=== PATIENT | female | born 1960 | race Caucasian/White ===

== ENCOUNTER 2017-07-13 11:47 | Emergency (ER) | payer OTHER ==
[2017-07-13] MEDS ORDERED: ACETAMINOPHEN 325 MG TABLET PO ONE (12:49)
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
[2017-07-13 14:51] VITALS: BP 151/81
== END 2017-07-13 14:48 | disposition home or self-care (01) ==
LOC: ER 11:47
DX: S43.402A Unspecified sprain of left shoulder joint, initial encounter (principal); S29.012A Strain of muscle and tendon of back wall of thorax, initial encounter; M25.512 Pain in left shoulder; M54.89 Other dorsalgia; R07.9 Chest pain, unspecified; V49.50XA Passenger injured in collision with unspecified motor vehicles in traffic accident, initial encounter
CPT/HCPCS: 71046; 99284

== ENCOUNTER 2018-05-28 09:28 | Emergency (ER) | payer OTHER ==
[2018-05-28] MEDS ORDERED: LIDOCAINE 1% INJ-PF (10 MG/ML) 30 ML SDV INJ ONE (09:42)
[2018-05-28] MEDS ORDERED: ACETAMINOPHEN 325 MG TABLET PO PRN (09:43)
[2018-05-28] MEDS ORDERED: DIPH/PERTUSS(ACELL)/TETANUS VAC/PF 0.5 ML SYR (>=10YO) IM ONE (09:43)
--- NOTE | 2018-05-28 09:44 | ER Document Report ---
ED Medical Screen (RME) - General Chief Complaint: Laceration Stated Complaint: FINGER INJURY Time Seen by Provider: 05/28/18 09:41 Notes: Patient was using a food cutter. Sliced her second digit on the left hand. Unknown last tetanus. No other major issues at this time. I have greeted and performed a rapid initial assessment of this patient. A comprehensive ED assessment and evaluation of the patient, analysis of test results and completion of the medical decision making process will be conducted by additional ED providers. TRAVEL OUTSIDE OF THE [place] IN LAST 30 DAYS: No - Related Data Allergies/Adverse Reactions: No Known Allergies Allergy (Verified 05/28/18 09:29) Past Medical History - Social History Frequency of alcohol use: None Drug Abuse: None Renal/ Medical History: Denies: Hx Peritoneal Dialysis Past Surgical History: Reports: Hx Section, Hx Tonsillectomy Physical Exam - Vital signs Vitals: Temp Pulse Resp BP Pulse Ox 98.3 F 69 16 147/81 H 100 05/28/18 09:33 05/28/18 09:33 05/28/18 09:33 05/28/18 09:33 05/28/18 09:33 Course - Vital Signs Vital signs: Temp Pulse Resp BP Pulse Ox 97.8 F 57 L 20 125/65 97 05/28/18 11:33 05/28/18 11:33 05/28/18 11:33 05/28/18 11:33 05/28/18 11:33 Doctor's Discharge - Discharge Clinical Impression: Finger laceration Condition: Stable Disposition: HOME, SELF-CARE Instructions: Laceration Care ([facility]), Tetanus Immunization Given ([facility]) Additional Instructions: Return immediately for any new or worsening symptoms Followup with your primary care provider, call tomorrow to make a followup appointment Suture removal in 10 days Referrals: ROSEMARY WELCH DO [ACTIVE STAFF] - Follow up as needed
--- NOTE | 2018-05-28 11:13 | ER Document Report ---
HPI - HPI Patient complains to provider of: Finger laceration Time Seen by Provider: 05/28/18 09:41 Onset: Just prior to arrival Onset/Duration: Sudden Quality of pain: Achy Pain Level: 3 Context: Patient was using a mandolin slicer and accidentally cut the tip of her left finger. Patient with laceration to the left tip of finger that does not involve the fingernail Associated Symptoms: Other - Finger laceration Exacerbated by: Movement Relieved by: Denies Similar symptoms previously: No Recently seen / treated by doctor: No - ROS ROS below otherwise negative: Yes Systems Reviewed and Negative: Yes All other systems reviewed and negative - NEURO Neurology: DENIES: Weakness - GASTROINTESTINAL Gastrointestinal: DENIES: Nausea - DERM Skin Color: Normal Skin Problems: Laceration Past Medical History - General Information source: Patient - Social History Smoking Status: Never Smoker Frequency of alcohol use: None Drug Abuse: None Occupation: None Family History: Reviewed & Not Pertinent Patient has suicidal ideation: No Patient has homicidal ideation: No - Medical History Medical History: Negative Renal/ Medical History: Denies: Hx Peritoneal Dialysis Past Surgical History: Reports: Hx Section, Hx Tonsillectomy Vertical Provider Document - CONSTITUTIONAL Agree With Documented VS: Yes Exam Limitations: No Limitations General Appearance: WD/WN, No Apparent Distress - INFECTION CONTROL TRAVEL OUTSIDE OF THE [place] IN LAST 30 DAYS: No - HEENT HEENT: Atraumatic, Normocephalic - NECK Neck: Normal Inspection - RESPIRATORY Respiratory: No Respiratory Distress - CARDIOVASCULAR Pulses: Normal: Radial - MUSCULOSKELETAL/EXTREMETIES Musculoskeletal/Extremeties: MAEW, FROM - NEURO Level of Consciousness: Awake, Alert, Appropriate Motor/Sensory: No Motor Deficit - DERM Integumentary: Warm, Dry, Laceration - 2 cm laceration to distal tip of left second finger Course - Vital Signs Vital signs: Temp Pulse Resp BP Pulse Ox 98.3 F 69 16 147/81 H 100 05/28/18 09:33 05/28/18 09:33 05/28/18 09:33 05/28/18 09:33 05/28/18 09:33 Procedures - Laceration/Wound Repair Left Finger 2nd digit Wound length (cm): 2 Wound's Depth, Shape: Flap Laceration pre-procedure: Shur-Clens applied Anesthetic type: 1% Lidocaine Wound explored: Clean Wound Repaired With: Sutures Suture Size/Type: 5:0, Ethilon Number of Sutures: 5 Layer Closure?: No Post-procedure wound care: Sterile dressing applied Post-procedure NV exam normal: Yes Complications: No Discharge - Discharge Clinical Impression: Finger laceration Qualifiers: Encounter type: initial encounter Finger: index finger Damage to nail status: without damage Foreign body presence: without foreign body Laterality: left Qualified Code(s): S61.211A - Laceration without foreign body of left index finger without damage to nail, initial encounter Condition: Stable Disposition: HOME, SELF-CARE Instructions: Laceration Care ([facility]), Tetanus Immunization Given ([facility]) Additional Instructions: Return immediately for any new or worsening symptoms Followup with your primary care provider, call tomorrow to make a followup appointment Suture removal in 10 days Referrals: ROSEMARY WELCH, [ACTIVE STAFF] - Follow up as needed
[2018-05-28 11:36] VITALS: BP 125/65
== END 2018-05-28 11:36 | disposition home or self-care (01) ==
LOC: ER 09:28
PROC: 0HQGXZZ Repair Left Hand Skin, External Approach (ICD-10-PCS; principal; 2018-05-28)
DX: S61.211A Laceration without foreign body of left index finger without damage to nail, initial encounter (principal); W26.8XXA Contact with other sharp object(s), not elsewhere classified, initial encounter
CPT/HCPCS: 99283; 90471; 90715; 12001; J3490

== ENCOUNTER → 2018-09-10 | Outpatient (CLI) | payer OTHER | LOC: LAB 12:47 | PROVIDERS: ATTEND Specialist | DX: N95.0 Postmenopausal bleeding (principal) | CPT/HCPCS: 36415; 83001; 84443 ==

== ENCOUNTER 2018-11-24 11:46 | Emergency (ER) | payer OTHER ==
--- NOTE | 2018-11-24 14:47 | ER Document Report ---
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 Patient states she has had an achy feeling in her left armpit for the last month. States her shoulder does not necessarily hurts more in her armpit. States yesterday she was in the shower when she felt a lump in her left breast. This concerned her which is why she presents to the emergency room. Patient states she does not have insurance. Patient's denying any pain or injury to the left breast or armpit. Denies any history of MRSA or abscess formations. Past Medical History - General Information source: Patient - Social History Smoking Status: Unknown if Ever Smoked Family History: Reviewed & Not Pertinent Renal/ Medical History: Denies: Hx Peritoneal Dialysis Past Surgical History: Reports: Hx Section, Hx Tonsillectomy Vertical Provider Document - CONSTITUTIONAL Agree With Documented VS: Yes Notes: GENERAL: Alert, interacts well. No acute distress. HEAD: Normocephalic, atraumatic. EYES: Pupils equal, round, and reactive to light. Extraocular movements intact. ENT: Oral mucosa moist, tongue midline. NECK: Full range of motion. Supple. Trachea midline. LUNGS: Clear to auscultation bilaterally, no wheezes, rales, or rhonchi. No respiratory distress. HEART: Regular rate and rhythm. No murmur Chest: [employer] Robin PCT, approximately 2 cm x 2 cm lesion noted 1:00 the left breast, no inversion of bilateral nipples, no discharge bilateral nipples. No overlying erythema, fluctuance noted. ABDOMEN: Soft, non-tender. Non-distended. Bowel sounds present in all 4 quadrants. EXTREMITIES: Moves all 4 extremities spontaneously. No edema, normal radial and dorsalis pedis pulses bilaterally. No cyanosis. BACK: no cervical, thoracic, lumbar midline tenderness. No saddle anesthesia, normal distal neurovascular exam. NEUROLOGICAL: Alert and oriented x3. Normal speech. cranial nerves II through XII grossly intact PSYCH: Normal affect, normal mood. SKIN: Warm, dry, normal turgor. No rashes or lesions noted. - INFECTION CONTROL TRAVEL OUTSIDE OF THE [place] IN LAST 30 DAYS: No Course - Re-evaluation Re-evalutation: 11/24/18 14:45 Discussed with patient that she inevitably needs a mammogram. Discussed following up at the [facility], [facility], [facility]. Phone numbers for all will be provided. Close return precautions discussed. At this time will discharge with return precautions and follow-up recommendations. Verbal discharge instructions given a the bedside and opportunity for questions given. Medication warnings reviewed. Patient is in agreement with this plan and has verbalized understanding of return precautions and the need for primary care follow-up in the next 24-72 hours. This medical record was dictated with voice recognizing software. There may be grammatical, syntax errors that are unintended. - Vital Signs Vital signs: Temp Pulse Resp BP Pulse Ox 97.8 F 60 18 161/83 H 99 11/24/18 12:13 11/24/18 12:13 11/24/18 12:13 11/24/18 12:13 11/24/18 12:13 Discharge - Discharge Clinical Impression: Lump of breast, left Condition: Stable Disposition: HOME, SELF-CARE Instructions: Breast Lumps ([facility]), Breast Self-Examination ([facility]) Additional Instructions: As we discussed to you have been seen and treated in the emergency department for a lump to your left breast. Is my recommendation that you follow-up for mammogram. Phone numbers for the health department, [facility], [facility] will be provided in this packet. Please also return to the emergency room for any other concerns. Referrals: DANDY RUTLEDGE MD [Primary Care Provider] - Follow up as needed [facility] [NO LOCAL MD] - Follow up as needed [facility] [Provider Group] - Follow up as needed [facility] [Provider Group] - Follow up as needed
[2018-11-24 15:29] VITALS: BP 184/84
== END 2018-11-24 15:29 | disposition home or self-care (01) ==
LOC: ER 11:46
DX: N63.20 Unspecified lump in the left breast, unspecified quadrant (principal)
CPT/HCPCS: 99283

== ENCOUNTER 2018-12-22 05:34 | Day surgery (SDC) | payer OTHER ==
[2018-12-15 12:27] LABS: HEMATOCRIT 41.4 % (36.0-47.0); HEMOGLOBIN 14.1 g/dL (12.0-15.5); MEAN CORPUSCULAR HEMOGLOBIN 30.5 pg (27.0-33.4); MEAN CORPUSCULAR VOLUME 90 fl (80-97); PLATELET COUNT 207 10^3/uL (150-450); RED BLOOD COUNT 4.62 10^6/uL (3.72-5.28); RED CELL DISTRIBUTION WIDTH 13.3 % (11.5-14.0); WHITE BLOOD COUNT 5.9 10^3/uL (4.0-10.5)
[2018-12-15 12:35] LABS: APPEARANCE,URINE SLIGHTLY-CLOUDY; BILIRUBIN,URINE NEGATIVE (NEGATIVE); COLOR,URINE YELLOW; GLUCOSE, URINE NEGATIVE (NEGATIVE); KETONES,URINE NEGATIVE (NEGATIVE); LEUKOCYTE ESTERASE,URINE NEGATIVE (NEGATIVE); NITRITE,URINE NEGATIVE (NEGATIVE); PROTEIN,URINE NEGATIVE (NEGATIVE); URINE SPECIFIC GRAVITY 1.019; UROBILINOGEN,URINE NEGATIVE mg/dL (<2.0)
--- NOTE | 2018-12-15 12:35 | RADIOLOGY REPORT (SQ) ---
EXAM DESCRIPTION: CHEST PA/LATERAL COMPLETED DATE/TIME: 12/15/2018 11:56 am REASON FOR STUDY: PREOP COMPARISON: Two-view chest 07/13/2017 EXAM PARAMETERS: NUMBER OF VIEWS: two views TECHNIQUE: Digital Frontal and Lateral radiographic views of the chest acquired. RADIATION DOSE: NA LIMITATIONS: none FINDINGS: LUNGS AND PLEURA: No opacities, masses or pneumothorax. No pleural effusion. MEDIASTINUM AND HILAR STRUCTURES: No masses or contour abnormalities. HEART AND VASCULAR STRUCTURES: Heart normal size. No evidence for failure. BONES: No acute findings. HARDWARE: None in the chest. OTHER: No other significant finding. IMPRESSION: NO SIGNIFICANT RADIOGRAPHIC FINDING IN THE CHEST. TECHNICAL DOCUMENTATION: JOB ID: [id number] [employer]- All Rights Reserved Reading location - IP/workstation name: [email or web address]
[2018-12-15 13:05] LABS: ANION GAP 10 (5-19); BLOOD UREA NITROGEN 16 mg/dL (7-20); CALCIUM 9.9 mg/dL (8.4-10.2); CARBON DIOXIDE 28 mmol/L (22-30); CHLORIDE 104 mmol/L (98-107); GLUCOSE 123 mg/dL (75-110); POTASSIUM 4.9 mmol/L (3.6-5.0)
--- NOTE | 2018-12-15 13:20 | EKG REPORT ---
SEVERITY:- ABNORMAL ECG - SINUS BRADYCARDIA OLD ANTEROSEPTAL OR : Confirmed by: Dharmesh Crystal MD 15-Dec-2018 13:19:51
[~2018-12-22 05:34] MED LIST: CEFAZOLIN 1 GM/D5W RTU 1 GM/50 ML RTUPB IV ONE; LACTATED RINGERS 1000 ML IV PRN; LIDOCAINE 0.5% INJ-PF (5 MG/ML) 50 ML SDV SUBCUT PRN
[2018-12-22] MEDS ORDERED: FENTANYL CITRATE INJ/PF 250 MCG/5 ML AMPULE ONE (06:47)
[2018-12-22] MEDS ORDERED: MIDAZOLAM 2 MG/2 ML INJ ONE (06:47)
[2018-12-22] MEDS ORDERED: PROPOFOL INJ 200 MG/20 ML VIAL IV ONE (06:47)
[2018-12-22] MEDS ORDERED: DIPHENHYDRAMINE HCL 50 MG/ML VIAL IV PRN (07:44)
[2018-12-22] MEDS ORDERED: PROMETHAZINE HCL INJ 25 MG/1 ML VIAL IV PRN ×2 (07:44)
[2018-12-22] MEDS ORDERED: MORPHINE SULFATE 10 MG/ML INJ IV PRN (07:44)
[2018-12-22] MEDS ORDERED: FENTANYL CITRATE INJ/PF 100 MCG/2 ML AMPUL IV PRN ×3 (07:44)
[2018-12-22] MEDS ORDERED: MEPERIDINE HCL/PF INJ 25 MG/1 ML DISP.SYRIN IV PRN (07:44)
[2018-12-22] MEDS ORDERED: OXYCODONE-ACETAMINOPHEN 5-325 MG TABLET PO PRN ×3 (07:44→09:30)
[2018-12-22] MEDS ORDERED: BUPIVACAINE INJ/PF LIPOSOME/PF 266 MG/20 ML SDV ONE (08:14)
--- NOTE | 2018-12-22 09:00 | OPERATIVE REPORT E ---
Operative Report NAME: JACQUELINE MCELROY : 1960 AGE: 58Y DATE OF SURGERY: 12/22/2018 ROOM: OR PREOPERATIVE DIAGNOSIS: UTERINE LEIOMYOMA. POSTOPERATIVE DIAGNOSIS: UTERINE LEIOMYOMA. OPERATION: Supracervical hysterectomy and bilateral salpingo-oophorectomy. SURGEON: DANDY RUTLEDGE M.D. FINDINGS: A 16 to 18 week size uterus, normal tubes and ovaries. Normal liver by palpation. Kidneys palpated normal size. Normal appearing ovaries and tubes are appreciated. INDICATIONS FOR PROCEDURE: The patient had symptomatic uterine leiomyoma. Desired attempt at definitive therapy. She has a history of tubular sclerosis and outpatient biopsies have been negative. The usual risks of bleeding, infection, anesthesia, and damage to organs and tissues have been discussed and the patient understood. DESCRIPTION OF PROCEDURE: The patient was taken to the operating room and placed in the modified lithotomy position. After adequate anesthesia ascertained, prepped and draped for the abdominal hysterectomy. Through a midline incision, subcutaneous fat and fascia, peritoneum was entered without difficulty. The uterus was brought into the operative field and all of its contents packed out of the pelvis. Round ligaments were identified, clamped, cut, and held. Using a LigaSure advance device, the majority of the operation was done to have the uterine vessels with obtaining the tubes and ovaries at the end after identifying the ureters out of the operative field and the infundibulopelvic ligaments identified. The bladder adherence to the cervix was the length of the cervix which complicated matters and elected to proceed with supracervical hysterectomy and so the uterus was amputated and handed off of the operative field. With completion of this, good hemostasis assured and all contents were reexamined. No lesions were appreciated. Irrigation was performed. EXPAREL was used for a total of 20 mL in the subfascial region. The fascia was closed with double stranded PDS sutures. Skin was approximated with skin ponce. DICTATING PHYSICIAN: DANDY RUTLEDGE M.D. [id number] PHY#: [id number] ID: [id number] JOB#: [id number] ACCT: [id number] cc:DANDY RUTLEDGE M.D. >
[2018-12-22] MEDS: FENTANYL CITRATE INJ/PF 100 MCG/2 ML AMPUL ONE ×2 (09:11→09:30)
[2018-12-22] MEDS ORDERED: MORPHINE INJ 6 MG DOSE (EDIT ROUTE) INJ PRN (09:30)
[2018-12-22] MEDS ORDERED: PROMETHAZINE HCL INJ 25 MG/1 ML VIAL IM PRN (09:30)
[2018-12-22] MEDS ORDERED: MORPHINE INJ 4 MG DOSE (EDIT ROUTE) INJ PRN (09:30)
[2018-12-22] MEDS ORDERED: MORPHINE INJ 8 MG DOSE IM PRN (09:30)
[2018-12-22] MEDS ORDERED: NEOSTIGMINE METHYLSULFATE 10 MG/10 ML VIAL ONE (09:51)
[2018-12-22] MEDS ORDERED: GLYCOPYRROLATE 1 MG/5 ML VIAL ONE (09:51)
[2018-12-22] MEDS ORDERED: ONDANSETRON HCL INJ/PF 4 MG/2 ML SDV ONE (09:51)
[2018-12-22] MEDS ORDERED: ROCURONIUM BROMIDE INJ 50 MG/5 ML VIAL IV ONE (09:51)
[2018-12-22] MEDS ORDERED: DEXAMETHASONE SOD PHOSPHATE INJ 4 MG/1 ML VIAL ONE (09:51)
[2018-12-22] MEDS ORDERED: KETOROLAC TROMETHAMINE 60 MG/2 ML SDV ONE (09:51)
[2018-12-22] MEDS ORDERED: LIDOCAINE 2% INJ-PF (20 MG/ML) 2 ML AMPUL ONE (09:51)
[2018-12-22] MEDS: IBUPROFEN 800 MG TABLET PO SCH ×2 (13:13→23:41)
[2018-12-22] MEDS: CEFAZOLIN 1 GM RTU (EDIT START TIME) IV SCH ×2 (13:13→18:23)
[2018-12-23] MEDS: IBUPROFEN 800 MG TABLET PO SCH (05:28)
[2018-12-23 07:06] LABS: HEMATOCRIT 37.3 % (36.0-47.0); HEMOGLOBIN 12.6 g/dL (12.0-15.5); MEAN CORPUSCULAR HEMOGLOBIN 30.5 pg (27.0-33.4); MEAN CORPUSCULAR HGB CONC 33.9 g/dL (32.0-36.0); MEAN CORPUSCULAR VOLUME 90 fl (80-97); PLATELET COUNT 186 10^3/uL (150-450); RED BLOOD COUNT 4.15 10^6/uL (3.72-5.28); RED CELL DISTRIBUTION WIDTH 13.6 % (11.5-14.0); WHITE BLOOD COUNT 12.4 10^3/uL (4.0-10.5)
[2018-12-23 07:58] VITALS: BP 141/69
--- NOTE | 2018-12-29 12:35 | DISCHARGE SUMMARY E ---
Discharge Summary NAME: JACQUELINE MCELROY : 1960 AGE: 58Y ADMITTED: 12/22/2018 DISCHARGED: 12/23/2018 HOSPITAL COURSE: This is a 58-year-old female with postmenopausal bleeding who underwent a supracervical hysterectomy with bilateral salpingo-oophorectomy for an 18 week size uterus. Date of procedure was 12/22/2018. Postoperatively the patient did well, ambulatory, regular diet, no evidence of DVT. She was discharged hospital day #1 doing well. Pathology demonstrated extensive adenomyosis, peritubular cysts, and a benign endometrial polyp, weight 363 g. FINAL DIAGNOSIS: Adenomyosis. PROCEDURE: Supracervical hysterectomy and bilateral salpingo-oophorectomy. DICTATING PHYSICIAN: DANDY RUTLEDGE M.D. [id number] PHY#: [id number] ID: [id number] JOB#: [id number] ACCT: [id number] cc:DANDY RUTLEDGE M.D. >
== END 2018-12-23 10:20 | disposition home or self-care (01) ==
LOC: UNDOADMIN 05:34 → INOR 05:34 → OROUT 05:34 → EDSTATUS 07:15 → 2N 10:33 → INOR 10:33 → 2N 10:33 → UNDODISIN 12-23 10:20 → OROUT 12-23 10:20
PROVIDERS: ATTEND Specialist
DX: K66.0 Peritoneal adhesions (postprocedural) (postinfection) (principal); N84.0 Polyp of corpus uteri; N80.0 Endometriosis of uterus; N83.209 Unspecified ovarian cyst, unspecified side; N83.8 Other noninflammatory disorders of ovary, fallopian tube and broad ligament; D25.9 Leiomyoma of uterus, unspecified; N95.9 Unspecified menopausal and perimenopausal disorder; Q85.1 Tuberous sclerosis; Z85.828 Personal history of other malignant neoplasm of skin; Z87.891 Personal history of nicotine dependence
CPT/HCPCS: 93005; 86900; 86901; 36415 ×3; 86850; 85027 ×2; 80048; 81001; 88307 ×2; 71046; 94799; 93010; 00840; 58180; J2250; J0690; J3490 ×3; J1100; J1885; J3010 ×2; J2710; J2405; J2704; C9290; 840

== ENCOUNTER 2019-07-06 21:53 | Emergency (ER) | payer MEDICAID, OTHER ==
--- NOTE | 2019-07-06 23:28 | ER Document Report ---
HPI - HPI Time Seen by Provider: 07/06/19 22:48 Pain Level: Denies Context: Patient is a 59-year-old female that comes emergency department for chief complaint of needing her port de-accessed. She states that she had chemotherapy earlier today, she is undergoing chemotherapy for breast cancer with Dr. Godinez in [place], she states that they accidentally discharged her before they de- accessed her port. She states she just needs it de-accessed and flushed. She has no other complaints including fever, vomiting, chest pain, shortness of breath. - REPRODUCTIVE Reproductive: DENIES: : Past Medical History - General Information source: Patient - Social History Smoking Status: Former Smoker Chew tobacco use (# tins/day): No Frequency of alcohol use: None Drug Abuse: None Lives with: Family Family History: Reviewed & Not Pertinent Patient has suicidal ideation: No Patient has homicidal ideation: No - Past Medical History Cardiac Medical History: Reports: Hx Hypertension, Hx Heart Murmur - DURING Denies: Hx Atrial Fibrillation, Hx Congestive Heart Failure, Hx Coronary Artery Disease, Hx Heart Attack, Hx Hypercholesterolemia, Hx Peripheral Vascular Disease Renal/ Medical History: Denies: Hx Ovarian Cysts, Hx Peritoneal Dialysis, Hx Pelvic Inflammatory Disease Malignancy Medical History: Denies: Hx Breast Cancer, Hx Cervical Cancer, Hx Ovarian Cancer GI Medical History: Reports: Hx Gastroesophageal Reflux Disease, Hx Irritable Bowel. Denies: Hx Crohn's Disease, Hx Hiatal Hernia, Hx Liver Failure, Hx Pancreatitis, Hx Ulcer Past Surgical History: Reports: Hx Section, Hx Hysterectomy, Hx Tonsillectomy, Hx Tubal Ligation. Denies: Hx Appendectomy, Hx Bowel Surgery, Hx Cholecystectomy, Hx Colostomy, Hx Coronary Artery Bypass Graft, Hx Gastric Bypass Surgery, Hx Herniorrhaphy, Hx Mastectomy, Hx Pacemaker - Immunizations Immunizations up to date: Yes Hx Diphtheria, Pertussis, Tetanus Vaccination: Yes Vertical Provider Document - CONSTITUTIONAL General Appearance: WD/WN, No Apparent Distress - INFECTION CONTROL TRAVEL OUTSIDE OF THE [place] IN LAST 30 DAYS: No - HEENT HEENT: Atraumatic, Normal ENT Exam, Normocephalic - NECK Neck: Normal Inspection - RESPIRATORY Respiratory: Breath Sounds Normal, No Respiratory Distress, Other - There is a currently accessed port in patient's right upper chest without tenderness, erythema, or swelling - CARDIOVASCULAR Cardiovascular: Regular Rate, Regular Rhythm - GI/ABDOMEN Gastrointestinal: Abdomen Soft, Abdomen Non-Tender. negative: Abdomen Tender - BACK Back: Normal Inspection - MUSCULOSKELETAL/EXTREMETIES Musculoskeletal/Extremeties: MAEW, FROM, Non-Tender - NEURO Level of Consciousness: Awake, Alert, Appropriate Motor/Sensory: No Motor Deficit, No Sensory Deficit - DERM Integumentary: Warm, Dry, No Rash Course - Re-evaluation Re-evalutation: Patient alert and well-appearing, no complaints other than needing her port addressed. This was de-accessed and flushed. - Vital Signs Vital signs: Temp Pulse Resp BP Pulse Ox 98.3 F 95 20 151/96 H 100 07/06/19 22:04 07/06/19 22:04 07/06/19 22:04 07/06/19 22:04 07/06/19 22:04 Discharge - Discharge Clinical Impression: Encounter to [facility] implanted intravenous (IV) port Condition: Stable Disposition: HOME, SELF-CARE Additional Instructions: The port has been flushed and de-accessed. Follow-up with your oncologist for additional management. Return for any concerning symptoms including fever, vomiting, or if something is not right. Referrals: STACIE PATTON, [facility] [Primary Care Provider] - Follow up as needed
[2019-07-06 23:56] VITALS: BP 152/89
== END 2019-07-06 23:47 | disposition home or self-care (01) ==
LOC: ER 21:53
DX: Z45.2 Encounter for adjustment and management of vascular access device (principal); K21.9 Gastro-esophageal reflux disease without esophagitis; I10 Essential (primary) hypertension; Z79.899 Other long term (current) drug therapy; Z90.710 Acquired absence of both cervix and uterus; Z85.3 Personal history of malignant neoplasm of breast
CPT/HCPCS: 99283; J1642

== ENCOUNTER 2019-07-21 22:01 | Emergency (ER) | payer MEDICAID, OTHER ==
[2019-07-21 22:15] VITALS: BP 151/96
== END 2019-07-22 00:16 | disposition left against medical advice (07) ==
LOC: ER 22:01
DX: Z53.21 Procedure and treatment not carried out due to patient leaving prior to being seen by health care provider (principal)